=== PATIENT | male | born 1990 | race Caucasian/White ===

== ENCOUNTER 2019-01-14 09:34 | Outpatient (CLI) | payer OTHER | END 2019-01-14 09:38 | disposition home or self-care (01) | LOC: EDBD 09:34 → LAB 09:34 | DX: I11.9 Hypertensive heart disease without heart failure (principal); E78.2 Mixed hyperlipidemia; E03.8 Other specified hypothyroidism ==

== ENCOUNTER → 2019-08-19 09:54 | Outpatient (CLI) | payer OTHER | END | disposition home or self-care (01) | LOC: LAB 08-18 17:01 | DX: M19.91 Primary osteoarthritis, unspecified site (principal); H05.129 Orbital myositis, unspecified orbit ==